=== PATIENT | male | born 1995 ===

== ENCOUNTER 2021-10-21 15:03 | Emergency (ER) ==
[~2021-10-21] VITALS: Ht 121.9 cm; Wt 86.2 kg
[2021-10-21] MEDS ORDERED: BENADRYL25 M1 PO (15:45)
[2021-10-21] MEDS ORDERED: PEPCID20 MG PO (15:48)
== END 2021-10-21 15:54 | disposition home or self-care (01) ==
LOC: ER 15:20
DX: L50.9 Urticaria, unspecified (principal); I10 Essential (primary) hypertension; Q05.9 Spina bifida, unspecified
CPT/HCPCS: 99282